=== PATIENT | female | born 1985 | race African-American/Black ===

== ENCOUNTER 2017-07-19 11:14 | Inpatient (IN) | payer OTHER ==
[2017-07-19] MEDS ORDERED: CARI1CAP2 PO (12:34)
[2017-07-19] MEDS ORDERED: BENZ0.5T PO (12:36)
[2017-07-19 12:46] VITALS: BP 111/86; PULSE 100; RESP 16; TEMP 98.6; O2SAT 97
--- NOTE | 2017-07-19 13:31 | PD ---
HPI Chief Complaint: Psychiatric Symptoms Time Seen by Provider: 13:30 Travel History International Travel<30 days: No Contact w/Intl Traveler<30days: No Traveled to known affect area: No History of Present Illness HPI 31-year-old Afro-Turkish female presents to the emergency department via [facility], under the Beyer act for reports of auditory hallucinations and decompensating behavior. Patient has history of schizophrenia. Patient denies suicidal or homicidal ideations. Patient was reported by her mother to be screaming for the time she woke up and then ran from the home out into the street in her [facility], [place]. Patient denies drug or alcohol use. She denies pain. She has no other significant medical problems. PFSH Past Medical History Patient Takes Glucophage: No Psychiatric: Yes Schizophrenia: Yes Tetanus Vaccination: Unknown ?: Unknown Past Surgical History Surgical History: Unable to Obtain Social History Alcohol Use: No Tobacco Use: No Substance Use: No Allergies-Medications (Allergen,Severity, Reaction): Coded Allergies: Penicillins (Verified Allergy, Unknown, 07/19/17) Per [facility] RN [phone]. Documented since Aug 2015 at [facility] per RN. aripiprazole (Verified Adverse Reaction, Unknown, 07/19/17) Per [facility] RN [phone]. Documented since Aug 2015 at [facility] per RN. citalopram (Verified Adverse Reaction, Unknown, 07/19/17) Per [facility] RN [phone]. Documented since Aug 2015 at [facility] per RN. clonazepam (Verified Adverse Reaction, Unknown, 07/19/17) Per [facility] RN [phone]. Documented since Aug 2015 at [facility] per RN. cyclobenzaprine (Verified Adverse Reaction, Unknown, 07/19/17) Per [facility] RN [phone]. Documented since Aug 2015 at [facility] per RN. lamotrigine (Verified Adverse Reaction, Unknown, 07/19/17) Per [facility] RN [phone]. Documented since Aug 2015 at [facility] per RN. lurasidone (Verified Adverse Reaction, Unknown, 07/19/17) Per [facility] RN [phone]. Documented since Aug 2015 at [facility] per RN. Reported Meds & Prescriptions Reported Meds & Active Scripts Active Reported Benztropine (Benztropine Mesylate) 0.5 Mg Tab 1 Mg PO BID Vraylar (Cariprazine) 3 Mg Cap 3 Mg PO DAILY Review of Systems ROS Limitations: Psychotic Except as stated in HPI: all other systems reviewed are Neg General / Constitutional: No: Fever Eyes: No: Visual changes HENT: No: Headaches Cardiovascular: No: Chest Pain or Discomfort Respiratory: No: Shortness of Breath Gastrointestinal: No: Abdominal Pain Genitourinary: No: Dysuria Musculoskeletal: No: Pain Skin: No Rash Neurologic: No: Weakness Psychiatric: No: Depression Endocrine: No: Polydipsia Hematologic/Lymphatic: No: Easy Bruising Physical Exam Exam Limitations: Psychotic Narrative GENERAL: Patient appears in no acute distress. She is cooperative. SKIN: Warm and dry. Normal color. Normal turgor. No obvious signs of trauma. HEAD: Atraumatic. Normocephalic. EYES: Pupils equal and round. No scleral icterus. No injection or drainage. ENT: No nasal bleeding or discharge. Mucous membranes pink and moist. Clear. NECK: Trachea midline. Neck is supple. CARDIOVASCULAR: Regular rate and rhythm. No murmurs gallops or rubs. RESPIRATORY: No accessory muscle use. Clear to auscultation. Breath sounds equal bilaterally. MUSCULOSKELETAL: Extremities without clubbing, cyanosis, or edema. No obvious deformities. NEUROLOGICAL: Awake and alert. No obvious cranial nerve deficits. Motor grossly within normal limits. Five out of 5 muscle strength in the arms and legs. Normal speech. PSYCHIATRIC: Appropriate mood and affect; insight and judgment normal. Data Data Last Documented VS Vital Signs Date Time Temp Pulse Resp B/P (MAP) Pulse Ox O2 Delivery O2 Flow Rate FiO2 07/19/17 12:46 98.6 100 16 111/86 (94) 97 Orders Orders Complete Blood Count With Diff (07/19/17 13:30) Comprehensive Metabolic Panel (07/19/17 13:30) Urinalysis - C+S If Indicated (07/19/17 13:30) Ed Urine Pregnancytest Poc (07/19/17 13:30) Psych Screen (07/19/17 13:30) Drug Screen, Random Urine (07/19/17 13:30) Alcohol (Ethanol) (07/19/17 13:30) MDM Medical Decision Making Medical Screen Exam Complete: Yes Emergency Medical Condition: Yes Medical Record Reviewed: Yes Differential Diagnosis Beyer act. Auditory hallucinations. Psychosis. Narrative Course Labs ordered per psychiatric protocol. Patient is medically cleared for psychiatric evaluation. Diagnosis Primary Impression: Medical clearance for psychiatric admission Condition: Stable Damon Rice Jul 19, 2017 13:31
[2017-07-19 14:00] VITALS: BP 120/81; PULSE 95; RESP 18
[2017-07-19 14:06] LABS: AUTOMATED NEUTROPHIL # 4.8 TH/MM3 (1.8-7.7); BASOPHIL % 0.6 % (0.0-2.0); EOSINOPHIL # 0.1 TH/MM3 (0-0.4); EOSINOPHIL % 1.3 % (0.0-4.0); HEMATOCRIT 37.2 % (35.0-46.0); HEMO FLAGS DIFF FINAL; LYMPH % 20.1 % (9.0-44.0); LYMPHOCYTE # 1.3 TH/MM3 (1.0-4.8); MEAN CELL VOLUME 78.4 FL (80.0-100.0); MEAN CORPUSCULAR HEMOGLOBIN 27.3 PG (27.0-34.0); MEAN CORPUSCULAR HGB CONC 34.8 % (32.0-36.0); MONO % 6.2 % (0.0-8.0); NEUT % 71.8 % (16.0-70.0); PLATELET COUNT 271 TH/MM3 (150-450); RED BLOOD COUNT 4.75 MIL/MM3 (4.00-5.30); RED CELL DISTRIBUTION WIDTH 14.5 % (11.6-17.2); WHITE BLOOD COUNT 6.7 TH/MM3 (4.0-11.0)
[2017-07-19 14:26] LABS: ANION GAP 7 MEQ/L (5-15); AST (GOT) 19 U/L (15-37); BICARBONATE 26.8 MEQ/L (21.0-32.0); BLOOD UREA NITROGEN 13 MG/DL (7-18); CHLORIDE 104 MEQ/L (98-107); GLOMERULAR FILTRATION RATE 94 ML/MIN (>89); POTASSIUM 4.2 MEQ/L (3.5-5.1); SODIUM (NA) 138 MEQ/L (136-145)
[2017-07-19 14:29] LABS: ALKALINE PHOSPHATASE 47 U/L (45-117); ALT (GPT) 35 U/L (10-53); TOTAL BILIRUBIN ADULT 0.8 MG/DL (0.2-1.0)
[2017-07-19 14:33] LABS: ALCOHOL 3 MG/DL (0-5)
[2017-07-19 18:00] VITALS: BP 125/82; PULSE 104; RESP 18; O2SAT 98
--- NOTE | 2017-07-19 18:27 | HHI.HP ---
Provisional Diagnosis Admission Date [place] I. Schizophrenia Certification of Person's Competence To Provide Express and Informed Consent I have personally examined Debbie Iqbal , a person being served at [facility] on, Jul 19, 2017 18:07. Express and informed consent means consent voluntarily given in writing, by a competent person, after sufficient explanation and disclosure of the subject matter involved to enable the person to make a knowing and willful decision without any element of force, fraud, deceit, duress, or other form of constraint or coercion. This person is 18 years of age or older, is not now known to be incompetent to consent to treatment with a guardian advocate, and does not have a health care surrogate or proxy currently making medical treatment decisions. I have found this person to be one of the following: [] Competent to provide express and informed consent, as defined above, for voluntary admission to this facility and is competent to provide express and informed consent for treatment. He/she has the consistent capacity to make well reasoned, willful, and knowing decisions concerning his or her medical or mental health treatment. The person fully and consistently understands the purpose of the admission for examination/placement and is fully capable of personally exercising all rights assured [place] [x] Incompetent to provide express and informed consent to voluntary admission, and this is incompetent to provide express and informed consent to treatment. The person must be transferred to involuntary status and a petition for a guardian advocate filed with the Circuit Court. [] Refusing to provide express and informed consent to voluntary admission but is competent to provide express and informed consent for treatment. The person must be discharged or transferred to involuntary status. Form shall be completed within 24 hours of a person's arrival at the receiving facility and filed in the clinical record of each person: 1. Admitted on a voluntary basis 2. Permitted to provide express and informed consent to his/her own treatment 3. Allowed to transfer from involuntary to voluntary status 4. Prior to permitting a person to consent to his or her own treatment after having been previously found incompetent to consent to treatment. History of Present Illness Capacity: Has Capacity HPI Patient is a 31-year-old woman, single, domiciled with mother and brother, unemployed currently in college, with past psychiatric history of schizophrenia, previous psychiatric hospitalizations unknown if previous suicide attempts but denies self-injurious behavior, no history of substance use no significant past medical history was brought under Beyer act due to auditory hallucinations and decompensation activated by mother. Collateral obtained by staff nurse reported that mother had stated that patient lives with mother seen recently at the [facility] last . She states that patient was initially treated for depression but then later diagnosed with schizophrenia. Patient noted to have been progressively declining academics. Mother reports that today patient had gone up in the morning screaming the house then ran out of the home and began screaming outside which she didn't actively 911 with subsequently brought patient to the hospital for evaluation. Mother also mentions patient has never attempted to hurt herself. Collateral from [facility] act obtained by staff nursing staff reported the patient has previously been on Rixulti, Saphris and most recently Vraylar 3 mg by mouth daily with Cogentin 0.5 by mouth twice a day. Patient was found standing in room in the ED noted to be internally preoccupied and during interview noted to be thought blocking and having poverty of speech and speech latency. Patient was able to state that she takes medications to "to help control my behavior, anger". Patient did nod yes to whether she was having auditory hallucinations was not able to elaborate. Patient denied any previous history of self- injurious behavior but did admit to previous hospitalizations. Past psychiatric history: Previous psychiatric diagnoses of schizophrenia, previous psychiatric hospitalizations, no previous suicide attempt or self- injurious behavior.Collateral reported patient recently on Vraylar 3mg by mouth daily Cogentin 0.5 by mouth twice a day. Substance use history denies Past medical history: Denies Allergies: Penicillins, Abilify, Celexa, clonazepam, cyclobenzaprine, Lamictal, Latuda Social history: Single, domiciled with mother and brother, unemployed, currently studying in college. Review of Systems Except as stated in HPI: all other systems reviewed are Neg Past Psych History Psychological trauma history Unknown as patient's poor historian Violence risk - others (6 mos) Low Violence risk - self (6 mos) Low Substance Abuse History Drugs/Alcohol past 12 months Denies Past Family Social History Coded Allergies: Penicillins (Verified Allergy, Unknown, 07/19/17) Per [facility] RN [phone]. Documented since Aug 2015 at [facility] per RN. aripiprazole (Verified Adverse Reaction, Unknown, 07/19/17) Per [facility] RN [phone]. Documented since Aug 2015 at [facility] per RN. citalopram (Verified Adverse Reaction, Unknown, 07/19/17) Per [facility] RN [phone]. Documented since Aug 2015 at [facility] per RN. clonazepam (Verified Adverse Reaction, Unknown, 07/19/17) Per [facility] RN [phone]. Documented since Aug 2015 at [facility] per RN. cyclobenzaprine (Verified Adverse Reaction, Unknown, 07/19/17) Per [facility] RN [phone]. Documented since Aug 2015 at [facility] per RN. lamotrigine (Verified Adverse Reaction, Unknown, 07/19/17) Per [facility] RN [phone]. Documented since Aug 2015 at [facility] per RN. lurasidone (Verified Adverse Reaction, Unknown, 07/19/17) Per [facility] RN [phone]. Documented since Aug 2015 at [facility] per RN. Reported Medications Benztropine (Benztropine) 0.5 Mg Tab, 1 MG PO BID, #60 TAB 0 Refills 07/19/17 Cariprazine (Vraylar) 3 Mg Cap, 3 MG PO DAILY, #30 CAP 0 Refills 07/19/17 Family Psych History Unknown as patient's poor historian Social History Single, domiciled with mother and brother, unemployed, currently studying in college. Patient's Strengths (min. 2) Verbal and communicative Physical Exam Upon the evaluation patient noted to be in acute distress, no gross motor abnormalities noted, no tremor no signs of EPS no psychomotor agitation but noted to have some psychomotor retardation. Vital Signs Vital Signs Date Time Temp Pulse Resp B/P (MAP) Pulse Ox O2 Delivery O2 Flow Rate FiO2 07/19/17 14:00 95 18 120/81 (94) Room Air 07/19/17 12:46 98.6 97 Lab Results Labs reviewed. Test 07/19/17 13:52 White Blood Count 6.7 TH/MM3 Red Blood Count 4.75 MIL/MM3 Hemoglobin 12.9 GM/DL Hematocrit 37.2 % Mean Corpuscular Volume 78.4 FL Mean Corpuscular Hemoglobin 27.3 PG Mean Corpuscular Hemoglobin Concent 34.8 % Red Cell Distribution Width 14.5 % Platelet Count 271 TH/MM3 Mean Platelet Volume 8.8 FL Neutrophils (%) (Auto) 71.8 % Lymphocytes (%) (Auto) 20.1 % Monocytes (%) (Auto) 6.2 % Eosinophils (%) (Auto) 1.3 % Basophils (%) (Auto) 0.6 % Neutrophils # (Auto) 4.8 TH/MM3 Lymphocytes # (Auto) 1.3 TH/MM3 Monocytes # (Auto) 0.4 TH/MM3 Eosinophils # (Auto) 0.1 TH/MM3 Basophils # (Auto) 0.0 TH/MM3 CBC Comment DIFF FINAL Differential Comment Blood Urea Nitrogen 13 MG/DL Creatinine 0.86 MG/DL Random Glucose 69 MG/DL Total Protein 8.3 GM/DL Albumin 3.9 GM/DL Calcium Level 9.1 MG/DL Alkaline Phosphatase 47 U/L Aspartate Amino Transf (AST/SGOT) 19 U/L Alanine Aminotransferase (ALT/SGPT) 35 U/L Total Bilirubin 0.8 MG/DL Sodium Level 138 MEQ/L Potassium Level 4.2 MEQ/L Chloride Level 104 MEQ/L Carbon Dioxide Level 26.8 MEQ/L Anion Gap 7 MEQ/L Estimat Glomerular Filtration Rate 94 ML/MIN Ethyl Alcohol Level 3 MG/DL Mental Status Examination Appearance: Appropriate Consciousness: Alert Orientation: Person Motor Activity: Normal gait Speech: Hesitant, Slow Language: Other (poor) Fund of Knowledge: Inadequate Attention and Concentration: Inadequate Memory: Impaired Mood: Other Affect: Blunt Thought Process & Associations: Disorganized Hallucination Type: Auditory Delusion Type: None Suicidal Ideation: No Suicidal Plan: No Suicidal Intention: No Homicidal Ideation: No Homicidal Plan: No Homicidal Intention: No Insight: Poor Judgment: Poor Assessment & Plan Problem List: (1) Schizophrenia ICD Codes: F20.9 - Schizophrenia, unspecified Assessment & Plan Estimated LOS: 5-7 days. Patient is a 31-year-old woman who carries a diagnosis schizophrenia with previous psychiatric hospitalizations who was brought in the Beyer act activated by mother due to auditory hallucinations decompensation. Patient this time of the be grossly psychotic, without blocking, disorganized, preoccupied and requires inpatient psychiatric stabilization. We'll requests petition for involuntary hospitalization due to concern of patient unable to care for self due to current symptomatology. Second opinion requested. Will start patient on risperidone 1 mg by mouth twice a day for psychosis, Cogentin 0.5 mg by mouth twice a day for EPS. Patient has not had prior visit with us with no previous record. We'll order a brain CT, labs order. Collateral physician pending. Discharge planning in progress Discharge Planning Patient to return back to mother's residence was psychiatrically stable Greg Contreras MD Jul 19, 2017 18:27
[2017-07-19] MEDS ORDERED: diphenhydrAMINE HCL 50 MG CAP PO PRN ×2 (18:30)
[2017-07-19] MEDS ORDERED: MAGNESIUM HYDROXIDE SUSP 30 ML CUP PO PRN (18:30)
[2017-07-19] MEDS ORDERED: ACETAMINOPHEN 325 MG TAB PO PRN (18:30)
[2017-07-19] MEDS ORDERED: hydrOXYzine HCL 50 MG TAB PO PRN (18:30)
[2017-07-19] MEDS ORDERED: ALUMINUM/MAGNESIUM/SIMETH 30 ML CUP PO PRN (18:30)
[2017-07-19] MEDS: BENZTROPINE MESYLATE 1 MG TAB PO SCH (21:48)
[2017-07-19] MEDS: risperiDONE 1 MG TAB PO SCH (21:48)
[2017-07-20 06:04] VITALS: BP 93/52; PULSE 108; RESP 16; TEMP 98.8; O2SAT 98
[2017-07-20] MEDS: risperiDONE 1 MG TAB PO SCH ×2 (09:05→20:54)
[2017-07-20] MEDS: BENZTROPINE MESYLATE 1 MG TAB PO SCH ×2 (09:05→20:54)
[2017-07-20 10:34] LABS: ANION GAP 10 MEQ/L (5-15); AUTOMATED NEUTROPHIL # 2.9 TH/MM3 (1.8-7.7); BASOPHIL % 0.5 % (0.0-2.0); BICARBONATE 24.7 MEQ/L (21.0-32.0); BLOOD UREA NITROGEN 14 MG/DL (7-18); CHLORIDE 103 MEQ/L (98-107); EOSINOPHIL # 0.2 TH/MM3 (0-0.4); EOSINOPHIL % 3.7 % (0.0-4.0); GLOMERULAR FILTRATION RATE 103 ML/MIN (>89); HEMATOCRIT 38.3 % (35.0-46.0); HEMO FLAGS DIFF FINAL; LYMPH % 29.1 % (9.0-44.0); LYMPHOCYTE # 1.4 TH/MM3 (1.0-4.8); MEAN CELL VOLUME 78.9 FL (80.0-100.0); MEAN CORPUSCULAR HGB CONC 32.9 % (32.0-36.0); MONO % 7.4 % (0.0-8.0); NEUT % 59.3 % (16.0-70.0); PLATELET COUNT 279 TH/MM3 (150-450); POTASSIUM 3.8 MEQ/L (3.5-5.1); RED BLOOD COUNT 4.86 MIL/MM3 (4.00-5.30); RED CELL DISTRIBUTION WIDTH 14.8 % (11.6-17.2); SODIUM (NA) 138 MEQ/L (136-145); WHITE BLOOD COUNT 4.9 TH/MM3 (4.0-11.0)
[2017-07-20 10:44] LABS: HDL CHOLESTEROL 58.4 MG/DL (40.0-60.0); LDL CHOLESTEROL 103 MG/DL (0-99)
--- NOTE | 2017-07-20 13:04 | HHI.PYPN ---
Subjective Remarks This is a request for second opinion. Admission note was reviewed and I agree with its contents. Case was discussed with nursing and patient was evaluated. Patient is alert and oriented 3. Eye contact and attention is fair. She is very soft spoken and initially would not answer but then puts together a couple words. This is likely due to thought blocking as responses are quite delayed and patient does admit to auditory hallucinations. No other psychotic symptoms noted. She is compliant with her medications and tolerating it well area denies suicidal or homicidal ideation intent or plan Mental Status Examination Appearance: Appropriate Consciousness: Alert Orientation: Person, Place, Date/Time Motor Activity: Normal gait Speech: Hesitant, Slow Language: Other (poor) Fund of Knowledge: Inadequate Attention and Concentration: Inadequate Memory: Impaired Mood: Other Affect: Flat Thought Process & Associations: Disorganized Hallucination Type: Auditory Delusion Type: None Suicidal Ideation: No Suicidal Plan: No Suicidal Intention: No Homicidal Ideation: No Homicidal Plan: No Homicidal Intention: No Insight: Poor Judgment: Poor Results Labs Test 07/19/17 13:52 07/20/17 08:25 White Blood Count 6.7 TH/MM3 4.9 TH/MM3 Red Blood Count 4.75 MIL/MM3 4.86 MIL/MM3 Hemoglobin 12.9 GM/DL 12.6 GM/DL Hematocrit 37.2 % 38.3 % Mean Corpuscular Volume 78.4 FL 78.9 FL Mean Corpuscular Hemoglobin 27.3 PG 26.0 PG Mean Corpuscular Hemoglobin Concent 34.8 % 32.9 % Red Cell Distribution Width 14.5 % 14.8 % Platelet Count 271 TH/MM3 279 TH/MM3 Mean Platelet Volume 8.8 FL 9.3 FL Neutrophils (%) (Auto) 71.8 % 59.3 % Lymphocytes (%) (Auto) 20.1 % 29.1 % Monocytes (%) (Auto) 6.2 % 7.4 % Eosinophils (%) (Auto) 1.3 % 3.7 % Basophils (%) (Auto) 0.6 % 0.5 % Neutrophils # (Auto) 4.8 TH/MM3 2.9 TH/MM3 Lymphocytes # (Auto) 1.3 TH/MM3 1.4 TH/MM3 Monocytes # (Auto) 0.4 TH/MM3 0.4 TH/MM3 Eosinophils # (Auto) 0.1 TH/MM3 0.2 TH/MM3 Basophils # (Auto) 0.0 TH/MM3 0.0 TH/MM3 CBC Comment DIFF FINAL DIFF FINAL Differential Comment Blood Urea Nitrogen 13 MG/DL 14 MG/DL Creatinine 0.86 MG/DL 0.80 MG/DL Random Glucose 69 MG/DL 78 MG/DL Total Protein 8.3 GM/DL Albumin 3.9 GM/DL Calcium Level 9.1 MG/DL 9.1 MG/DL Alkaline Phosphatase 47 U/L Aspartate Amino Transf (AST/SGOT) 19 U/L Alanine Aminotransferase (ALT/SGPT) 35 U/L Total Bilirubin 0.8 MG/DL Sodium Level 138 MEQ/L 138 MEQ/L Potassium Level 4.2 MEQ/L 3.8 MEQ/L Chloride Level 104 MEQ/L 103 MEQ/L Carbon Dioxide Level 26.8 MEQ/L 24.7 MEQ/L Anion Gap 7 MEQ/L 10 MEQ/L Estimat Glomerular Filtration Rate 94 ML/MIN 103 ML/MIN Ethyl Alcohol Level 3 MG/DL Triglycerides Level 195 MG/DL Cholesterol Level 200 MG/DL LDL Cholesterol 103 MG/DL HDL Cholesterol 58.4 MG/DL Cholesterol/HDL Ratio 3.42 RATIO Thyroid Stimulating Hormone 3rd Gen 0.945 uIU/ML Vitals/IOs Vital Signs Date Time Temp Pulse Resp B/P (MAP) Pulse Ox O2 Delivery O2 Flow Rate FiO2 07/20/17 06:04 98.8 108 16 93/52 (66) 98 07/19/17 18:00 Room Air Assessment & Plan Problem List: (1) Schizophrenia ICD Codes: F20.9 - Schizophrenia, unspecified Assessment & Plan CAT scan will be ordered. I agree with the first opinion to continue petition. Criteria include acute psychosis Justification for Cont. Inpt. Patient will decompensate in a less restrictive setting Antwon Phelan DO Jul 20, 2017 13:04
--- NOTE | 2017-07-20 13:06 | EKG ---
Date Performed: 07/20/2017 Time Performed: 11:29:38 PTAGE: 31 years EKG: SINUS TACHYCARDIA ABNORMAL RHYTHM ECG NO PREVIOUS TRACING DOCTOR: Ezekiel Fernández Interpretating Date/Time 07/20/2017 13:04:40
--- NOTE | 2017-07-20 14:52 | RADRPT ---
EXAM DATE/TIME: 07/20/2017 14:29 [place] COMPARISON: No previous studies available for comparison. INDICATIONS : Altered mental status. RADIATION DOSE: 56.77 CTDIvol (mGy) MEDICAL HISTORY : Schizophrenia. SURGICAL HISTORY : None. ENCOUNTER: Initial ACUITY: 1 day PAIN SCALE: 0/10 LOCATION: cranial TECHNIQUE: Multiple contiguous axial images were obtained of the head. Using automated exposure control and adj ustment of the mA and/or kV according to patient size, radiation dose was kept as low as reasonably a chievable to obtain optimal diagnostic quality images. DICOM format image data is available electro nically for review and comparison. FINDINGS: CEREBRUM: The ventricles are normal for age. No evidence of midline shift, mass lesion, hemorrhage or acute in farction. No extra-axial fluid collections are seen. POSTERIOR FOSSA: The cerebellum and brainstem are intact. The 4th ventricle is midline. The cerebellopontine angle i s unremarkable. EXTRACRANIAL: The visualized portion of the orbits is intact. SKULL: The calvaria is intact. No evidence of skull fracture. CONCLUSION: Normal examination for a patient of this age. Guero Posey MD on July 20, 2017 at 14:50 Board Certified Radiologist. This report was verified electronically.
[2017-07-20 18:42] VITALS: BP 137/111; PULSE 105; RESP 16; TEMP 97.1; O2SAT 99
[2017-07-21 06:03] VITALS: BP 108/58; PULSE 86; RESP 16; TEMP 98; O2SAT 99
[2017-07-21] MEDS: BENZTROPINE MESYLATE 1 MG TAB PO SCH ×2 (09:57→21:00)
[2017-07-21] MEDS: risperiDONE 1 MG TAB PO SCH (09:57)
--- NOTE | 2017-07-21 15:35 | PD.TTN ---
Patient Problems 1. Discharge planning 2. Medication compliance 3. Knowledge deficit 4. Lack of coping skills Progress Toward Goals Provider Present: Dr. Nhi Contreras Provider Input: Dr. Nguyen's treatment team met to discuss patient's treatment plan, discharge and medication. Patient is new and will access. Nurse(s) Input: Patient's nurse Madi reports patient is medication compliant. Paranoid, with internal stimulation. Patient has delayed speech. Patient is hearing voices to harm self. Psychiatric Counselors Present: AIDAN BestMayte Psych Therapist Input: Patient is new and this counselor will access patient to determine patient's needs and goals Group Spec/RT/OT/RODRIGUEZ Present: Damon Mitchell OT Group Spec/RT/OT/RODRIGUEZ Input: Patient does not attend groups Kamille Lion Jul 21, 2017 15:34
[2017-07-21 16:08] LABS: HEMOGLOBIN A1a 0.7 %; HEMOGLOBIN A1b 2.1 %; HEMOGLOBIN Ao 86.4 %; HEMOGLOBIN LA1C 1.6 %; HEMOGLOBIN P3 3.3 %
[2017-07-21 17:04] VITALS: BP 109/55; PULSE 97; RESP 18; O2SAT 99
--- NOTE | 2017-07-21 19:29 | HHI.PYPN ---
Subjective Remarks Patient seen for follow up; chart reviewed. Patient found lying on hospital bed calm and cooperative with interview. Patient states that she slept well last night, mood is "good", noted to be thought blocking, speech latency, internally preoccupied. Patient continues to endorse AH which she last heard last night but was not able to elaborate the content but did state that it was two voices, non command. She states that she had a visit by her mother and brother yesterday which went well. Currently endorses AH at time of interview denies SI , HI, VH or delusions. Review of Systems Except as stated in HPI: all other systems reviewed are Neg Mental Status Examination Appearance: Appropriate Consciousness: Alert Orientation: Person, Place, Date/Time Motor Activity: Normal gait Speech: Hesitant, Slow Language: Other (poor) Fund of Knowledge: Inadequate Attention and Concentration: Inadequate Memory: Impaired Mood: Other Affect: Flat Thought Process & Associations: Disorganized, Other (poverty of thought) Thought Content: Hallucinations, Thought blocking Hallucination Type: Auditory Delusion Type: None Suicidal Ideation: No Suicidal Plan: No Suicidal Intention: No Homicidal Ideation: No Homicidal Plan: No Homicidal Intention: No Insight: Poor Judgment: Poor Results Vitals/IOs Vital Signs Date Time Temp Pulse Resp B/P (MAP) Pulse Ox O2 Delivery O2 Flow Rate FiO2 07/21/17 17:04 97 18 109/55 (73) 99 07/21/17 06:03 98.0 07/19/17 18:00 Room Air Assessment & Plan Problem List: (1) Schizophrenia ICD Codes: F20.9 - Schizophrenia, unspecified Assessment & Plan Patient at this time continues to be noted to have internal preoccupation, thought blocking and speech latency. Will increase risperidone to 1mg am/ 2mg HS for psychosis. Will order EEG to rule out seizure disorder. Head CT on 05/27 was normal study. Continue to monitor mood and behavior. Collateral pending. Discharge planning in progress. Justification for Cont. Inpt. At risk for further decompensation if at lower level of care. Discharge Planning Patient to return back to mother's home once psychiatrically stable. Greg Contreras MD Jul 21, 2017 19:29
[2017-07-21 20:00] VITALS: BP 109/55; PULSE 97; RESP 18; O2SAT 99
[2017-07-21] MEDS ORDERED: risperiDONE 1 MG TAB PO SCH (21:00)
[2017-07-22] MEDS ORDERED: risperiDONE 1 MG TAB PO SCH (09:00)
[2017-07-22] MEDS: BENZTROPINE MESYLATE 1 MG TAB PO SCH ×2 (09:34→21:55)
--- NOTE | 2017-07-22 14:53 | HHI.PYPN ---
Subjective Remarks Patient seen for follow-up, chart reviewed. Patient was found lying in hospital bed, minimally cooperative interview today. Patient states that she is feeling "okay", reports having had EEG done today. Patient states that she had difficulty sleeping last evening was unable to provide more details as to why. Patient states that she has been hearing voices but was unable to elaborate what the voices say her intense or describe any characteristics from the voices. Patient states that last time she heard the voices was today continues to be present even during interview. Patient noted to be slightly more engaged but continues to be internally preoccupied. Review of Systems Except as stated in HPI: all other systems reviewed are Neg Mental Status Examination Appearance: Appropriate Consciousness: Alert Orientation: Person, Place, Date/Time Motor Activity: Normal gait Speech: Hesitant, Slow Language: Other (poor) Fund of Knowledge: Inadequate Attention and Concentration: Inadequate Memory: Impaired Mood: Other Affect: Flat Thought Process & Associations: Disorganized, Other (poverty of thought) Thought Content: Hallucinations, Thought blocking Hallucination Type: Auditory Delusion Type: None Suicidal Ideation: No Suicidal Plan: No Suicidal Intention: No Homicidal Ideation: No Homicidal Plan: No Homicidal Intention: No Insight: Poor Judgment: Poor Results Vitals/IOs Vital Signs Date Time Temp Pulse Resp B/P (MAP) Pulse Ox O2 Delivery O2 Flow Rate FiO2 07/21/17 20:00 97 18 109/55 (73) 99 07/21/17 06:03 98.0 07/19/17 18:00 Room Air Assessment & Plan Problem List: (1) Schizophrenia ICD Codes: F20.9 - Schizophrenia, unspecified Assessment & Plan Patient this time continues to be noted to be psychotic, internally preoccupied , speech latency, thought blocking but noted to have more response today. We' ll increase Risperdal to 2 mg by mouth twice a day for psychosis. Discharge planning in progress Justification for Cont. Inpt. At risk for further decompensation if at lower level of care Discharge Planning Patient to return back to mother's residence was psychiatric stable. Greg Contreras MD Jul 22, 2017 14:53
[2017-07-22 18:00] VITALS: BP 115/70; PULSE 100; RESP 18; TEMP 97.8; O2SAT 99
[2017-07-22] MEDS: risperiDONE 1 MG TAB PO SCH (21:55)
[2017-07-23 06:21] VITALS: BP 117/69; PULSE 108; RESP 17; TEMP 98
[2017-07-23] MEDS: risperiDONE 1 MG TAB PO SCH (09:00)
[2017-07-23] MEDS: BENZTROPINE MESYLATE 1 MG TAB PO SCH ×2 (09:00→20:57)
--- NOTE | 2017-07-23 16:21 | HHI.PYPN ---
Subjective Remarks Patient seen for follow-up, chart review. Discussion with nursing staff reported the patient continues to be noted to be internally preoccupied, complaining medications and this morning had tried to cheek medications. Patient was found lying in hospital bed, cooperative but was able to sit up and provide more interaction today. Patient states that she is feeling "okay" not forthcoming with information and does not have spontaneous speech. When asked what patient does at home she states that she has a to do list which she is plan for the day but was not able to describe what these items that she has to do have been in the past. Patient states that she did not have any auditory hallucinations initially but then wrote reported hearing them during interview. Patient was unable to describe the voices Jose stating "I don't know" states that time she is not able to understand what they're saying. Patient was encouraged to shower and put on her casual clothing which she [place] just nodded as well as encouraged to participate in groups. Management Liaison spoke with patient's mother over the phone which she expresses concern about the patient has been doing stating that she has tried have patient seen therapist/counselor but had been too expensive. Mother believes that patient's treatment should involve only therapy and believes that medications would not address her current symptomatology. Time was spent discussing with mother treatment approach with medications to address her psychosis which she acknowledged and agreed to. Patient is motivated toward the patient has [place] [facility] tomorrow and will attempt to be present. Review of Systems Except as stated in HPI: all other systems reviewed are Neg Mental Status Examination Appearance: Appropriate Consciousness: Alert Orientation: Person, Place, Date/Time Motor Activity: Normal gait Speech: Hesitant, Slow Language: Other (poor) Fund of Knowledge: Inadequate Attention and Concentration: Inadequate Memory: Impaired Mood: Other Affect: Flat Thought Process & Associations: Disorganized, Other (poverty of thought) Thought Content: Hallucinations, Thought blocking Hallucination Type: Auditory Delusion Type: None Suicidal Ideation: No Suicidal Plan: No Suicidal Intention: No Homicidal Ideation: No Homicidal Plan: No Homicidal Intention: No Insight: Poor Judgment: Poor Results Vitals/IOs Vital Signs Date Time Temp Pulse Resp B/P (MAP) Pulse Ox O2 Delivery O2 Flow Rate FiO2 07/23/17 06:21 98.0 108 17 117/69 (85) 07/22/17 18:00 99 07/19/17 18:00 Room Air Assessment & Plan Problem List: (1) Schizophrenia ICD Codes: F20.9 - Schizophrenia, unspecified Assessment & Plan Patient at this time continues to be noted to be internally preoccupied, some thought blocking and endorsing auditory hallucinations actively but able to note that she is slightly more engaging in interview today. Patient has not shower since having resonated and was encouraged to the same which she and a knowledge. We'll increase risperidone to 2 mg by mouth a.m./3 mg by mouth at bedtime for psychosis. Continue to monitor medication response and adverse drug reactions. Continue encourage patient to participate in groups and activities as well as maintain personal hygiene while on the unit. Discharge planning in progress Justification for Cont. Inpt. At risk for further decompensation if at lower level of care Discharge Planning Patient to return back to her mother's residence once psychiatrically stable. Greg Contreras MD Jul 23, 2017 16:21
[2017-07-23 17:06] VITALS: BP 118/82; PULSE 102; RESP 18; TEMP 98.1; O2SAT 99
--- NOTE | 2017-07-23 19:54 | MG ---
cc: YUNIOR LESLIE M.D. Lab No: Date: 07/23/2017 Age: Sex: F Race: REQUESTING PHYSICIAN Dr. Contreras INDICATION An EEG was obtained on this 31-year-old patient being evaluated for psychiatric issues. MEDICATIONS 1. Risperdal. 2. Cogentin. DESCRIPTION The patient is described as awake. There is a mixture of beta and alpha rhythms diffusely. There is also artifact diffusely. There is eye movement artifact. Overall symmetrical rhythms. Photic stimulation showed some bilateral driving response. INTERPRETATION Normal predominantly awake EEG. Yunior Leslie MD [facility]/KK /6:37 PM /7:36 PM
[2017-07-23] MEDS ORDERED: risperiDONE 3 MG TAB PO SCH (21:00)
[2017-07-24 05:56] VITALS: BP 108/78; PULSE 96; RESP 16; TEMP 98.3; O2SAT 99
--- NOTE | 2017-07-24 08:30 | PD.TTN ---
Patient Problems 1. Discharge planning 2. Medication compliance 3. Knowledge deficit 4. Lack of coping skills Progress Toward Goals Provider Present: Dr. Nhi Contreras Provider Input: Dr. Nguyen's treatment team met to discuss patient's treatment plan, discharge and medication. Patient is new and will access. 07/23/17 Patient continues to meet criteria will continue with treatment Nurse(s) Input: Patient's nurse Madi reports patient is medication compliant. Paranoid, with internal stimulation. Patient has delayed speech. Patient is hearing voices to harm self. 07/23/17 Patient's nurse Aixa reports patient is bizarre, slow to respond, hard to understand, denied hearing voices Psychiatric Counselors Present: ARSEN Best Psych Therapist Input: Patient is new and this counselor will access patient to determine patient's needs and goals 07/23/17 Patient presents childlike, disorganized, affect blunted. Patient's speech is low, difficult to understand, delayed. Patient denies hearing voices however patient does present to be internally stimulated. Patient continues to meet criteria. Patient has [place] [facility] tomorrow. Group Spec/RT/OT/RODRIGUEZ Present: Damon Mitchell OT Group Spec/RT/OT/RODRIGUEZ Input: Patient does not attend groups 07/23/17 Patient does not attend groups, seclusive to room Kamille Lion Jul 24, 2017 08:30
[2017-07-24] MEDS ORDERED: risperiDONE 1 MG TAB PO SCH (09:00)
[2017-07-24] MEDS: BENZTROPINE MESYLATE 1 MG TAB PO SCH (09:18)
[2017-07-24] MEDS ORDERED: RISP3 PO (11:34)
[2017-07-24] MEDS ORDERED: RISP2TAB2 PO (11:34)
[2017-07-24] MEDS ORDERED: Benztropine PO (11:34)
--- NOTE | 2017-07-24 14:32 | HHI.DS ---
Psychiatry Discharge Summary Inpatient Psychiatric care?: Yes Advance Directive: No Reason Not Provided: Due to Patient Condition Mental Health AdvanceDirective: No Health Care Proxy: No Admission Admission Date Jul 19, 2017 at 18:30 Admission Diagnosis: (1) Schizophrenia ICD Code: F20.9 - Schizophrenia, unspecified Brief History Patient is a 31-year-old woman, single, domiciled with mother and brother, unemployed currently in college, with past psychiatric history of schizophrenia, previous psychiatric hospitalizations unknown if previous suicide attempts but denies self-injurious behavior, no history of substance use no significant past medical history was brought under [address] act due to auditory hallucinations and decompensation activated by mother. Collateral obtained by staff nurse reported that mother had stated that patient lives with mother seen recently at the land [facility] last . She states that patient was initially treated for depression but then later diagnosed with schizophrenia. Patient noted to have been progressively declining academics. Mother reports that today patient had gone up in the morning screaming the house then ran out of the home and began screaming outside which she didn't actively 911 with subsequently brought patient to the hospital for evaluation. Mother also mentions patient has never attempted to hurt herself. Collateral from [facility] act obtained by staff nursing staff reported the patient has previously been on Rixulti, Saphris and most recently Vraylar 3 mg by mouth daily with Cogentin 0.5 by mouth twice a day. Patient was found standing in room in the ED noted to be internally preoccupied and during interview noted to be thought blocking and having poverty of speech and speech latency. Patient was able to state that she takes medications to "to help control my behavior, anger". Patient did nod yes to whether she was having auditory hallucinations was not able to elaborate. Patient denied any previous history of self- injurious behavior but did admit to previous hospitalizations. Past psychiatric history: Previous psychiatric diagnoses of schizophrenia, previous psychiatric hospitalizations, no previous suicide attempt or self- injurious behavior.Collateral reported patient recently on Vraylar 3mg by mouth daily Cogentin 0.5 by mouth twice a day. Substance use history denies Past medical history: Denies Allergies: Penicillins, Abilify, Celexa, clonazepam, cyclobenzaprine, Lamictal, Latuda Social history: Single, domiciled with mother and brother, unemployed, currently studying in college. Tobacco Use In Past 30 Days: No Tobacco Past 30 Days Alcohol Use: Never Hospital Course Patient is a 31-year-old woman, single, domiciled with mother and brother, unemployed currently in college, with past psychiatric history of schizophrenia, previous psychiatric hospitalizations unknown if previous suicide attempts but denies self-injurious behavior, no history of substance use no significant past medical history was brought under [facility] act due to auditory hallucinations and decompensation activated by mother. Patient admitted to the inpatient psychiatric unit for further evaluation and management. Patient was started on risperidone 1 mg by mouth twice a day for psychosis and titrated up to 2 mg a.m./3 mg at bedtime, Cogentin 0.5 mg by mouth twice a day for EPS which she began to respond well to treatment, was noted to be more engaging in interview, with better affect, and less speech latency and thought blocking. Patient had not showered or participated in groups and activities since admission and had been requiring encouragement to do basic ADLs. Patient was taken to mental health court which travel assistant decided the patient will be discharged. Mother was encouraged to continue patient follow-up with outpatient psychiatrist for continued treatment as well as for continuity of care which she agreed to. Patient advised to call 911 or go nearest ED in case of emergency. Patient agreed with plan. Results Blood Pressure 108 / 78 Vital Signs Date Time Temp Pulse Resp B/P (MAP) Pulse Ox O2 Delivery O2 Flow Rate FiO2 07/24/17 05:56 98.3 96 16 108/78 (88) 99 Laboratory Results Test 07/20/17 08:25 Cholesterol Level 200 MG/DL (120-200) HDL Cholesterol 58.4 MG/DL (40.0-60.0) Hemoglobin A1c 5.2 % (4.3-6.0) LDL Cholesterol 103 MG/DL (0-99) Triglycerides Level 195 MG/DL (42-150) Summary of Procedures None Imaging Last Impressions Head CT 07/20/17 0000 Signed Impressions: Service Date/Time: Thursday, July 20, 2017 14:29 - CONCLUSION: Normal examination for a patient of this age. Guero Posey MD Pending results at discharge: No Medications # of Antipsychotic meds at D/C: 1 Approp Antipsych med options 1 - Minimum of three failed multiple trials of monotherapy. 2 - Documented plan to taper to monotherapy due to previous use of multiple meds OR cross-taper in progress at D/C. 3 - Documentation of augmentation of Clozapine. 4 - Justification other than those listed in allowable values 1-3, document here : Discharge Discharge Date: Jul 24, 2017 Discharge Diagnosis: (1) Schizophrenia ICD Code: F20.9 - Schizophrenia, unspecified Pt Condition on Discharge: Stable Discharge Disposition: Discharge Home Discharge Instructions Diet Instructions: As Tolerated, No Restrictions Activities you can perform: Regular-No Restrictions Scheduled Appointment: Josh Andrade Appointment Date: Jul 24, 2017 Appointment Time: 7:30AM Discharge Time > 30 minutes Mental Status Examination Appearance: Appropriate Consciousness: Alert Orientation: Person, Place, Date/Time Motor Activity: Normal gait Speech: Hesitant, Slow Language: Other (poor) Fund of Knowledge: Inadequate Attention and Concentration: Inadequate Memory: Impaired Mood: Other Affect: Flat Thought Process & Associations: Disorganized, Other (poverty of thought) Thought Content: Hallucinations, Thought blocking Hallucination Type: Auditory Delusion Type: None Suicidal Ideation: No Suicidal Plan: No Suicidal Intention: No Homicidal Ideation: No Homicidal Plan: No Homicidal Intention: No Insight: Poor Judgment: Poor Discharge/Advance Care Plan Health Problems: (1) Schizophrenia Goals to promote your health * To prevent worsening of your condition and complications * To maintain your health at the optimal level Directions to meet your goals Take your medications as prescribed Follow your dietary instruction Follow activity as directed Keep your appointments as scheduled Take your immunizations and boosters as scheduled If your symptoms worsen call your PCP, if no PCP go to Urgent Care Center or Emergency Room For 03/03 questions related to your inpatient stay or results of tests pending at discharge, please contact Dr. Greg Contreras at Smoking is Dangerous to Your Health. Avoid second hand smoking Greg Contreras MD Jul 24, 2017 14:32
== END 2017-07-24 13:15 | disposition home or self-care (01) | DRG 885 ==
LOC: NEDAMB 11:14 → NEDA 18:30 → H260 19:58
PROVIDERS: ADMIT Student in an Organized Health Care Education/Training Program; ATTEND Student in an Organized Health Care Education/Training Program
DX: F20.9 Schizophrenia, unspecified (principal); Z88.0 Allergy status to penicillin
CPT/HCPCS: 70450; 80048; 80053; 80061; 80307; 83036; 84443; 85025; 93005; 95819